=== PATIENT | female | born 1975 | race Caucasian/White ===

== ENCOUNTER 2016-12-18 10:29 | Inpatient (IN) | payer BC ==
[~2016-12-18] VITALS: Ht 165.1 cm; Wt 81.6 kg
[~2016-12-18 10:29] MED LIST: ASPIR-LOW81 MG PO; ASPIRIN81 M2 PO; ATORVASTATIN CA80 MG PO; BRILINTA90 MG PO; COZAAR25 MG PO; COZAAR50 MG PO; FENOFIBRATE145 M1 PO; LIPITOR20 MG PO; LOPRESSOR50 MG PO; LOSARTAN POTASS25 MG PO; PRAVASTATIN SOD20 MG PO; TOPROL XL50 MG PO; TRICOR145 MG PO; TYLENOL EXTRA500 MG PO; ULTRAM50 MG PO
[2016-12-18] MEDS ORDERED: XANAX0.25 MG PO (12:31)
[2016-12-18 12:32] VITALS: BP 162/85
[2016-12-18 12:55] VITALS: BP 162/85
[2016-12-18 19:00] VITALS: BP 160/87
[2016-12-18 20:39] LABS: HEMATOCRIT 38.9 % (36.0-46.0); MCH 29.8 PG (29.0-34.0); MCHC 33.7 G/DL (30.0-36.0); MCV 88.6 FL (83-99); MEAN PLAT.VOLUME 10.6 uM^3 (9.5-12.4); PLATELET COUNT 192 K/uL (156-360); RBC DIS.WIDTH-CV 11.9 % (11.8-14.6); RBC DIS.WIDTH-SD 38.2 % (39-53); RED BLOOD COUNT 4.39 M/uL (3.80-5.20); WHITE BLOOD COUNT 13.5 K/uL (4.1-10.2)
[2016-12-18 21:01] LABS: ANION GAP 8 MEQ/L (2-14); CHLORIDE 103 MEQ/L (99-109); GFR ESTIMATE (CALCULATED) > 59 mL/min/; GLUCOSE 155 mg/dL (70-99); POTASSIUM 3.4 MEQ/L (3.7-5.4); SAMPLE HEMOLYSIS CHECK 0; SAMPLE ICTERIC CHECK 0; SAMPLE LIPEMIA CHECK 0; SODIUM 136 MEQ/L (136-147); UREA NITROGEN (BUN) 8 mg/dL (9-23)
[2016-12-18 23:32] VITALS: BP 142/77
[2016-12-19] VITALS (7 sets, daily range): BP systolic 135–182; BP diastolic 74–93
[2016-12-19 06:46] LABS: HEMATOCRIT 37.5 % (36.0-46.0); MCH 30.7 PG (29.0-34.0); MCHC 34.4 G/DL (30.0-36.0); MCV 89.3 FL (83-99); MEAN PLAT.VOLUME 10.6 uM^3 (9.5-12.4); PLATELET COUNT 204 K/uL (156-360); RBC DIS.WIDTH-SD 38.6 % (39-53)
[2016-12-19 07:42] LABS: ANION GAP 8 MEQ/L (2-14); CHLORIDE 108 MEQ/L (99-109); GFR ESTIMATE (CALCULATED) > 59 mL/min/; GLUCOSE 136 mg/dL (70-99); POTASSIUM 3.9 MEQ/L (3.7-5.4); SAMPLE HEMOLYSIS CHECK 0; SAMPLE ICTERIC CHECK 0; SAMPLE LIPEMIA CHECK 0; SODIUM 141 MEQ/L (136-147); UREA NITROGEN (BUN) 4 mg/dL (9-23)
[2016-12-20 03:50] VITALS: BP 143/82
[2016-12-20 07:02] VITALS: BP 161/99
[2016-12-20 07:24] LABS: ANION GAP 8 MEQ/L (2-14); CHLORIDE 105 MEQ/L (99-109); GFR ESTIMATE (CALCULATED) > 59 mL/min/; GLUCOSE 119 mg/dL (70-99); HEMATOCRIT 37.9 % (36.0-46.0); MCH 30.9 PG (29.0-34.0); MCHC 34.3 G/DL (30.0-36.0); PLATELET COUNT 185 K/uL (156-360); POTASSIUM 3.7 MEQ/L (3.7-5.4); RBC DIS.WIDTH-CV 12.3 % (11.8-14.6); RBC DIS.WIDTH-SD 39.9 % (39-53); RED BLOOD COUNT 4.21 M/uL (3.80-5.20); SAMPLE HEMOLYSIS CHECK 0; SAMPLE ICTERIC CHECK 0; SAMPLE LIPEMIA CHECK 0; SODIUM 140 MEQ/L (136-147); UREA NITROGEN (BUN) 8 mg/dL (9-23); WHITE BLOOD COUNT 10.8 K/uL (4.1-10.2)
[2016-12-20] MEDS ORDERED: TRAMADOL HCL50 MG PO (09:37)
== END 2016-12-20 10:55 | disposition home or self-care (01) | DRG 740 ==
LOC: 2SOUTH 10:29 → 2EAST 18:56
PROVIDERS: Obstetrics & Gynecology Gynecologic Oncology
DX: C53.9 Malignant neoplasm of cervix uteri, unspecified (principal); C79.82 Secondary malignant neoplasm of genital organs; I25.10 Atherosclerotic heart disease of native coronary artery without angina pectoris; I10 Essential (primary) hypertension; E78.5 Hyperlipidemia, unspecified; I25.2 Old myocardial infarction; R73.9 Hyperglycemia, unspecified; R94.31 Abnormal electrocardiogram [ECG] [EKG]; F41.9 Anxiety disorder, unspecified; Z87.891 Personal history of nicotine dependence
CPT/HCPCS: 36415; 80048; 85027; 86850; 86900; 86901; 86920; 88305; 88309; 94799; J0330; J1100; J1170; J1580; J1650; J1885; J2270; J2405; J2710; J2765; J3010; J7050; J7120; S0030